=== PATIENT | female | born 1940 | race Caucasian/White ===

== ENCOUNTER 2018-10-23 08:30 | Day surgery (SDC) | payer MEDICARE, BC ==
[2018-10-21 11:18] LABS: HEMATOCRIT 40.4 % (36.0-48.0); HEMOGLOBIN 12.9 g/dL (12-16); MCH 26.6 pg (26.0-34.0); MCHC 31.9 g/dL (31.0-37.0); MCV 83.3 fL (80.0-100.0); RBC 4.85 10x6/uL (4.00-5.40); RDW 15.9 % (11.5-14.5); WBC 8.4 10x3/uL (4.8-10.8)
[2018-10-21 11:49] LABS: ANION GAP 13.6 mmol/L (8-16); CALCIUM 9.5 mg/dL (8.5-10.1); CARBON DIOXIDE 25.5 mmol/L (21.0-32.0); CREATININE - SERUM 1.4 mg/dL (0.6-1.3); POTASSIUM - SERUM 5.1 mmol/L (3.5-5.1)
[~2018-10-23] VITALS: Ht 172.7 cm; Wt 80.3 kg
[~2018-10-23 08:30] MED LIST: GLUCOTROL 5 MG T5 MG PO; TENORMIN50 MG PO
[2018-10-23] MEDS ORDERED: FERROUS SULFAT325 MG (08:38)
[2018-10-23 08:42] VITALS: BP 185/76; Ht 172.7 cm; Wt 80.3 kg
[2018-10-23] MEDS ORDERED: HYDROCODON-ACE1 EA10 PO (12:38)
--- NOTE | 2018-11-03 07:51 | OP ---
PATIENT NAME: KURT MOREAU MEDICAL RECORD: [id number] LOCATION:D.OPS ADMISSION DATE: SURGEON: REGINA DOMINGUEZ MD DATE OF OPERATION: 10/23/2018 PREOPERATIVE DIAGNOSIS: Ganglion cyst, volar aspect of the left wrist. POSTOPERATIVE DIAGNOSIS: Ganglion cyst, volar aspect of the left wrist. PROCEDURE: Excision of ganglion cyst. SURGEON: Regina Dominguez MD ANESTHESIA: General. INTRAOPERATIVE COMPLICATIONS: None. SUMMARY OF PATHOLOGIC FINDINGS: Upon excision of the ganglion cyst, the patient was found to indeed have a large rent in the volar aspect of the wrist capsule. This was closed with #2 Vicryl. OPERATIVE SUMMARY IN DETAIL: After obtaining the appropriate preoperative orthopedic surgery consent as well as anesthetic consultation, evaluation, and clearance, the patient was brought to the operating room and placed on the operating table in a supine position. After general laryngeal mask airway as administered, the tourniquet was placed on the proximal aspect of the left upper extremity. Left upper extremity was then prepped and draped in routine sterile fashion. Arm was elevated and exsanguinated, tourniquet was inflated to 250 mmHg. An incision was made directly over the cyst. The cyst was then dissected out carefully proximally and distally ulnarly as well as radially. Stalk was then identified. The cyst was removed in its entirety. The wound was then irrigated and then the rent in the volar capsule was closed, [id number] #2 Vicryl was utilized. The wound was then again irrigated and closed with 4-0 Prolene. The area was locally infiltrated with 0.25% Marcaine plain. Sterile dressings were applied. Tourniquet was deflated. The patient was awakened, taken to the recovery room in stable condition. All final needle and sponge counts were correct. TRANSINT:[id number] Voice Confirmation ID: [id number] DOCUMENT ID: [id number] ANGELICA LUNA, REGINA REDDY at 0751 CC: [id number] DICTATION DATE: 10/31/18 1209 METAL PLATER: 10/31/18 1543 [facility] 10/23/18 [place] [address]
== END 2018-10-23 13:33 | disposition home or self-care (01) ==
LOC: D.OPS 08:30 → D.PAN 12:35 → D.OPS 13:33 → D.PAN 16:30 → D.OPS 16:30
PROVIDERS: Anesthesiology; ATTEND Orthopaedic Surgery
DX: M67.432 Ganglion, left wrist (principal); Z01.812 Encounter for preprocedural laboratory examination